=== PATIENT | male | born 1970 | race Caucasian/White ===

== ENCOUNTER 2016-09-29 11:28 | Inpatient (IN) | payer OTHER ==
[2016-09-29 13:33] VITALS: BMI 34.2
--- NOTE | 2016-09-29 18:39 | HP ---
CIWA Score - CIWA Score Nausea/Vomitin Muscle Tremors: 3 Anxiety: 3 Agitation: 3 Paroxysmal Sweats: 2 Orientation: 0-Oriented Tacttile Disturbances: 2-Mild Itch/Numbness/Burn Auditory Disturbances: 2-Mild Harshness/Frighten Visual Disturbances: 2-Mild Sensitivity Headache: 2-Mild CIWA-Ar Total Score: 22 Admission ROS BHS - HPI Chief Complaint: I NEED HELP TO STOP DRINKING ALCOHOL Allergies/Adverse Reactions: Allergies Allergy/AdvReac Type Severity Reaction Status Date / Time Egg Derived Allergy Severe Hives Verified 09/29/16 18:34 Fish Containing Products Allergy Severe Hives Verified 09/29/16 18:34 milk Allergy Severe Hives Verified 09/29/16 18:34 No Known Drug Allergies Allergy Verified 09/29/16 18:34 eggs Allergy Severe Hives Uncoded 03/03/16 14:53 History of Present Illness: THIS 46 YEARS OLD MALE WITH ALCOHOL DEPENDENCE,WITHDRAWAL SYMPTOM,LAST DETOX, LAST DETOX 03/03/16 TO 03/06/16 [facility] MULTIPLE ADMISSIONS IN DETOX ANXIETY AND DEPRESSION NICOTINE DEPENDENCE LONGEST PERIOD SOBRIETY 6 MONTHS Exam Limitations: No Limitations, Intoxication - Ebola screening Have you traveled outside of the country in the last 21 days: No (N) Have you had contact with anyone from an Ebola affected area: No Have you been sick,other than usual withdrawal symptoms: No Do you have a fever: No - Review of Systems Constitutional: Loss of Appetite, Malaise, Night Sweats, Changes in sleep, Weakness EENT: reports: Nose Congestion Respiratory: reports: No Symptoms reported Cardiac: reports: Palpitations GI: reports: Diarrhea, Nausea, Vomiting, Abdominal cramping : reports: No Symptoms Reported Musculoskeletal: reports: Back Pain, Muscle Pain Integumentary: reports: Dryness Neuro: reports: Headache, Tremors Endocrine: reports: No Symptoms Reported Hematology: reports: No Symptoms Reported Psychiatric: reports: Anxious, Depressed Patient History - Patient Medical History Hx Anemia: No Hx Asthma: No Hx Chronic Obstructive Pulmonary Disease (COPD): No Hx Cancer: No Hx Cardiac Disorders: No Hx Congestive Heart Failure: No Hx Hypertension: Yes (ALCOHOL RELATED BP ELEVATION) Hx Hypercholesterolemia: No Hx Pacemaker: No HX Cerebrovascular Accident: No Hx Seizures: No Hx Dementia: No Hx Diabetes: No Hx Gastrointestinal Disorders: Yes (acid reflux,lap gastric bypass in 2006 at [facility]) Hx Liver Disease: No Hx Genitourinary Disorders: No Hx Sexually Transmitted Disorders: No Hx Renal Disease (ESRD): No (KIDNEY STONE 2004) Hx Thyroid Disease: No Hx Human Immunodeficiency Virus (HIV): No Hx Hepatitis C: No Hx Depression: Yes (anxiety and depression, TRAZADONE) Hx Suicide Attempt: No Hx Bipolar Disorder: No Hx Schizophrenia: No Other Medical History: NO SUICIDAL,NO HOMICIDAL - Patient Surgical History Past Surgical History: Yes Hx Neurologic Surgery: No Hx Cataract Extraction: No Hx Cardiac Surgery: No Hx Lung Surgery: No Hx Breast Surgery: No Hx Breast Biopsy: No Hx Abdominal Surgery: Yes (gastric bypass 2007) Hx Appendectomy: No Hx Cholecystectomy: No Hx Genitourinary Surgery: Yes (CYSTOSCOPY WITH US LITHOTRIPSY) Hx Section: No Hx Orthopedic Surgery: No Other Surgical History: gastric bypass in 05/2008 Anesthesia Reaction: No - PPD History Previous Implant?: Yes Documented Results: Negative w/o proof Date: 03/28/15 Results: 0 MM PPD to be Administered?: Yes - Smoking Cessation Smoking history: Current every day smoker Have you smoked in the past 12 months: Yes Aproximately how many cigarettes per day: 4 Cigars Per Day: 5 Hx Chewing Tobacco Use: No Initiated information on smoking cessation: Yes 'Breaking Loose' booklet given: 09/29/16 - Substance & Tx. History Hx Alcohol Use: Yes Hx Substance Use: No Substance Use Type: Alcohol Hx Substance Use Treatment: Yes ([facility] 03/03/16 TO 03/06/16) - Substances Abused Alcohol Route: Oral Frequency: Daily Amount used: 2 pints Vodka Age of first use: 17 Date of Last Use: 09/29/16 Family Disease History - Family Disease History Family Disease History: Diabetes: Father ( HEART DISEASE), Heart Disease : Father, Other: Father, Mother, Brother, Sister Admission Physical Exam S - Vital Signs Vital Signs: Vital Signs - 24 hr 09/29/16 13:31 Temperature 98.2 F Pulse Rate 138 H Respiratory 18 Rate Blood Pressure 138/88 - Physical General Appearance: Yes: Moderate Distress, Tremorous, Irritable, Sweating, Anxious HEENTM: Yes: Nasal Congestion Respiratory: Yes: Lungs Clear Neck: Yes: Within Normal Limits Breast: Yes: Within Normal Limits Cardiology: Yes: Within Normal Limits, Regular Rhythm, S1, S2, Tachycardia Abdominal: Yes: Within Normal Limits, Normal Bowel Sounds, Non Tender, Soft, Other (S.P LAP GASTRIC BYPASS) Genitourinary: Yes: Within Normal Limits Back: Yes: Within Normal Limits Musculoskeletal: Yes: Back pain, Muscle Pain Extremities: Yes: Tremors Neurological: Yes: business objects II-XII NML intact, Fully Oriented, Alert, Motor Strength 5/5 Integumentary: Yes: Dry Lymphatic: Yes: Within Normal Limits - Diagnostic (1) Alcohol dependence with uncomplicated withdrawal Current Visit: No Status: Acute (2) Anxiety and depression Current Visit: No Status: Acute (3) Nicotine dependence Current Visit: No Status: Acute Qualifiers: Nicotine product type: other Substance use status: uncomplicated Qualified Code(s): F17.290 - Nicotine dependence, other tobacco product, uncomplicated Comment: SMOKES 5 CIGARS/D (4) Status following surgery for weight loss Current Visit: No Status: Acute (5) Kidney stones Current Visit: Yes Status: Acute (6) Insomnia Current Visit: Yes Status: Acute (7) Alcohol dependence with acute alcoholic intoxication Current Visit: Yes Status: Acute Cleared for Admission [facility] - Detox or Rehab [facility] Level of Care: Medically Managed Detox Regimen/Protocol: Librium [facility] Breath Alcohol Content Breath Alcohol Content: 0.235 Urine Drug Screen - Results Drug Screen Negative: Yes
[2016-09-29] MEDS ORDERED: P-EPHED 60MG/TRIPROLIDI 2.5MG TABLET PO PRN (18:58)
[2016-09-29] MEDS ORDERED: hydrOXYzine PAMOATE 50 MG CAPSULE (FP) PO PRN (18:58)
[2016-09-29] MEDS ORDERED: ACETAMINOPHEN 325 MG TABLET (FP) PO PRN (18:58)
[2016-09-29] MEDS ORDERED: MAGNESIUM CITRATE 300 ML BOTTLE PO PRN (18:58)
[2016-09-29] MEDS ORDERED: chlordiazePOXIDE HCL 25 MG CAPSULE PO PRN (18:58)
[2016-09-29] MEDS ORDERED: MAGNESIUM HYDROX 2400MG/30ML ORAL SUSPENSION 30 ML CUP PO PRN (18:58)
[2016-09-29] MEDS ORDERED: MENTHOL/PHENOL 1 EACH UD MM PRN (18:58)
[2016-09-29] MEDS ORDERED: LOPERAMIDE HCL 2 MG CAPSULE PO PRN (18:58)
[2016-09-29] MEDS ORDERED: diphenhydrAMINE HCL 50 MG CAPSULE PO PRN (18:58)
[2016-09-29] MEDS ORDERED: IBUPROFEN 400 MG TABLET (FP) PO PRN (18:58)
[2016-09-29] MEDS ORDERED: chlordiazePOXIDE HCL 25 MG CAPSULE PO ONE (18:58)
[2016-09-29] MEDS ORDERED: guaiFENesin/D-METHORPHAN HB 10 ML UNIT-DOSE CUPS PO PRN (18:58)
[2016-09-29] MEDS ORDERED: MAG HYDROX/AL HYDROX/SIMETH 30 ML UNIT-DOSE CUP PO PRN (18:58)
[2016-09-29] MEDS: THIAMINE HCL 100 MG TABLET (FP) PO SCH (22:32)
[2016-09-29] MEDS: chlordiazePOXIDE HCL 25 MG CAPSULE PO SCH (22:32)
[2016-09-30] MEDS: chlordiazePOXIDE HCL 25 MG CAPSULE PO SCH ×4 (05:41→22:29)
[2016-09-30 10:22] LABS: MCH 27.8 pg (25.7-33.7); MCHC 33.6 g/dl (32.0-35.9); MEAN CELL VOLUME 82.7 fl (80-96); MEAN PLT VOLUME 8.6 fl (7.5-11.1); PLATELET COUNT 131 K/MM3 (134-434); RDW 13.7 % (11.9-15.9); WHITE BLOOD COUNT 6.3 K/mm3 (4.0-10.0)
[2016-09-30] MEDS: PRENATAL VITAMINS W/ FOLIC ACID TABLET (FP) PO SCH (10:41)
[2016-09-30 10:46] LABS: ALBUMIN 3.9 g/dl (3.4-5.0); ALK PHOS 123 U/L (45-117); ANION GAP 9 (8-16); CALCIUM 8.4 mg/dL (8.5-10.1); CO2 32 mmol/L (21-32); CREATININE 0.9 mg/dL (0.7-1.3); GLUCOSE,RANDOM 78 mg/dL (74-106); SGOT/AST 30 U/L (15-37); SGPT/ALT 38 U/L (12-78); TOT PROT 6.4 g/dl (6.4-8.2)
--- NOTE | 2016-09-30 11:24 | PN ---
[facility] CIWA - CIWA Score Nausea/Vomitin-No Nausea/No Vomiting Muscle Tremors: 4-Moderate,w/Arms Extend Anxiety: 4-Mod. Anxious/Guarded Agitation: 4-Moderately Restless Paroxysmal Sweats: 1-Minimal Palms Moist Orientation: 0-Oriented Tacttile Disturbances: 3-Moderate Itch/Numb/Burn Auditory Disturbances: 0-None Visual Disturbances: 0-None Headache: 0-None Present CIWA-Ar Total Score: 16 BHS Progress Note (SOAP) Subjective: ANXIETY,TREMORS,SWEATS. Objective: 09/30/16 11:23 Vital Signs Temperature 97.8 F 09/30/16 11:12 Pulse Rate 110 H 09/30/16 11:12 Respiratory Rate 18 09/30/16 11:12 Blood Pressure 148/95 09/30/16 11:12 O2 Sat by Pulse Oximetry (%) Laboratory Last Values WBC 6.3 K/mm3 (4.0-10.0) D 09/30/16 08:00 RBC 5.40 M/mm3 (4.00-5.60) 09/30/16 08:00 Hgb 15.0 GM/dL (11.7-16.9) D 09/30/16 08:00 Hct 44.6 % (35.4-49) D 09/30/16 08:00 MCV 82.7 fl (80-96) 09/30/16 08:00 MCHC 33.6 g/dl (32.0-35.9) 09/30/16 08:00 RDW 13.7 % (11.9-15.9) 09/30/16 08:00 Plt Count 131 K/MM3 (134-434) L D 09/30/16 08:00 MPV 8.6 fl (7.5-11.1) 09/30/16 08:00 Sodium 141 mmol/L (136-145) 09/30/16 08:00 Potassium 3.9 mmol/L (3.5-5.1) 09/30/16 08:00 Chloride 100 mmol/L (98-107) 09/30/16 08:00 Carbon Dioxide 32 mmol/L (21-32) D 09/30/16 08:00 Anion Gap 9 (8-16) 09/30/16 08:00 BUN 15 mg/dL (7-18) D 09/30/16 08:00 Creatinine 0.9 mg/dL (0.7-1.3) 09/30/16 08:00 Creat Clearance w eGFR > 60 (>60) 09/30/16 08:00 Random Glucose 78 mg/dL (74-106) 09/30/16 08:00 Calcium 8.4 mg/dL (8.5-10.1) L 09/30/16 08:00 Total Bilirubin 2.0 mg/dL (0.2-1.0) H D 09/30/16 08:00 AST 30 U/L (15-37) D 09/30/16 08:00 ALT 38 U/L (12-78) 09/30/16 08:00 Alkaline Phosphatase 123 U/L (45-117) H D 09/30/16 08:00 Total Protein 6.4 g/dl (6.4-8.2) 09/30/16 08:00 Albumin 3.9 g/dl (3.4-5.0) 09/30/16 08:00 Assessment: 09/30/16 11:23 WITHDRAWAL SX Plan: CONTINUE DETOX PROTOCOL
[2016-09-30 11:46] LABS: HIV 1 & 2 AB NEGATIVE; HIV 1 AGp24 NEGATIVE
--- NOTE | 2016-09-30 13:38 | CONSULT ---
[facility] Psychiatric Consult - Data Date of interview: 09/30/16 Admission source: [facility] Identifying data: This is another admission to [facility] for Elías Benjamin who is a 46 y/o male seeking detoxification treatment on for alcohol dependence.Patient is ,a father of one,unemployed,domiciled and supported on [facility] benefits. Substance Abuse History: - Smoking Cessation. Smoking history: Current every day smoker. Have you smoked in the past 12 months: Yes. Aproximately how many cigarettes per day: 4. Cigars Per Day: 5. Hx Chewing Tobacco Use: No. Initiated information on smoking cessation: Yes. 'Breaking Loose' booklet given : 09/29/16. - Substance & Tx. History. Hx Alcohol Use: Yes. Hx Substance Use : No. Substance Use Type: Alcohol. Hx Substance Use Treatment: Yes ([facility] 03/03 TO 03/06/16). - Substances Abused. Alcohol. Route: Oral. Frequency: Daily. Amount used: 2 pints Vodka. Age of first use: 17. Date of Last Use: . Confirmed by patient in this interview. Medical History: Significant for hypertension (alcohol-related),GERD and obesity.Noted report of gastric bypass in 2007 and a history of cystoscopy/ lithotripsy. Psychiatric History: Patient admits to " a few " psychiatric hospitalizations in his lifetime.Known to [facility] and [facility].Diagnosed with MDD and Anxiety Disorder NOS.Medications :prozac 20 mg/ day + trazodone 300 mg/hs (confirmed through review of records).OPD care is rendered at the [facility] health clinic in [facility].Mr Benjamin states that he last took his medications prior to this [facility] visit.Patient denies history of suicide attempts. Physical/Sexual Abuse/Trauma History: No history. Additional Comment: Drug Screen is negative. Mental Status Exam - Mental Status Exam Alert and Oriented to: Time, Place, Person Cognitive Function: Good Patient Appearance: Well Groomed Mood: Withdrawn, Hopeful Affect: Normal Range Patient Behavior: Fatigued, Appropriate, Cooperative Speech Pattern: Clear Voice Loudness: Normal Thought Process: Goal Oriented Thought Disorder: Not Present Hallucinations: Denies Suicidal Ideation: Denies Homicidal Ideation: Denies Insight/Judgement: Fair Sleep: Poorly, Difficulty falling asleep Appetite: Good Muscle strength/Tone: Normal Gait/Station: Normal Psychiatric Findings - Problem List (Cameron 1, 2,3) (1) Alcohol dependence with uncomplicated withdrawal Current Visit: Yes Status: Acute (2) Nicotine dependence Current Visit: Yes Status: Acute Qualifiers: Nicotine product type: other Substance use status: uncomplicated Qualified Code(s): F17.290 - Nicotine dependence, other tobacco product, uncomplicated Comment: SMOKES 5 CIGARS/D (3) Alcohol-induced mood disorder Current Visit: Yes Status: Acute (4) MDD (major depressive disorder) Current Visit: Yes Status: Chronic (5) Insomnia Current Visit: Yes Status: Chronic (6) Kidney stones Current Visit: Yes Status: Chronic - Initial Treatment Plan Initial Treatment Plan: Psychoeducation.Detoxification.Medications : trazodone 300 mg po hs + prozac 20 mg po daily.Side effects/benefits discussed with the patient.Made aware of risk of priapism (trazodone).Patient responds that he is very well aware of the risks involved in taking these two drugs.History of good tolerability.Patient agrees to continue treatment on these drugs.Observation.
[2016-09-30] MEDS: FLUoxetine HCL 20 MG CAPSULE (FP) PO SCH (14:20)
--- NOTE | 2016-09-30 21:35 | EKG ---
Test Reason : Blood Pressure : / mmHG Vent. Rate : 113 BPM Atrial Rate : 113 BPM P-R Int : 148 ms QRS Dur : 084 ms QT Int : 324 ms P-R-T Axes : 056 013 039 degrees QTc Int : 444 ms SINUS TACHYCARDIA OTHERWISE NORMAL ECG NO PREVIOUS ECGS AVAILABLE Confirmed by TED CORTÉS MD ([id number]) on 09/30/2016 9:35:15 PM Referred By: Confirmed By:TED CORTÉS MD
[2016-09-30] MEDS: traZODone HCL 100 MG TABLET (FP) PO SCH (22:29)
[2016-09-30] MEDS: THIAMINE HCL 100 MG TABLET (FP) PO SCH (22:30)
[2016-10-01] MEDS: chlordiazePOXIDE HCL 25 MG CAPSULE PO SCH ×3 (05:44→17:21)
[2016-10-01] MEDS: PRENATAL VITAMINS W/ FOLIC ACID TABLET (FP) PO SCH (10:43)
[2016-10-01] MEDS: FLUoxetine HCL 20 MG CAPSULE (FP) PO SCH (10:43)
--- NOTE | 2016-10-01 11:55 | PN ---
[facility] CIWA - CIWA Score Nausea/Vomitin-No Nausea/No Vomiting Muscle Tremors: 4-Moderate,w/Arms Extend Anxiety: 4-Mod. Anxious/Guarded Agitation: 4-Moderately Restless Paroxysmal Sweats: 1-Minimal Palms Moist Orientation: 0-Oriented Tacttile Disturbances: 3-Moderate Itch/Numb/Burn Auditory Disturbances: 0-None Visual Disturbances: 0-None Headache: 0-None Present CIWA-Ar Total Score: 16 BHS Progress Note (SOAP) Subjective: ANXIETY,SLIGHT TREMORS,FATIGUE. Objective: 10/01/16 11:56 Vital Signs Temperature 95.3 F L 10/01/16 10:52 Pulse Rate 100 H 10/01/16 10:52 Respiratory Rate 18 10/01/16 10:52 Blood Pressure 126/82 10/01/16 10:52 O2 Sat by Pulse Oximetry (%) Laboratory Last Values WBC 6.3 K/mm3 (4.0-10.0) D 09/30/16 08:00 RBC 5.40 M/mm3 (4.00-5.60) 09/30/16 08:00 Hgb 15.0 GM/dL (11.7-16.9) D 09/30/16 08:00 Hct 44.6 % (35.4-49) D 09/30/16 08:00 MCV 82.7 fl (80-96) 09/30/16 08:00 MCHC 33.6 g/dl (32.0-35.9) 09/30/16 08:00 RDW 13.7 % (11.9-15.9) 09/30/16 08:00 Plt Count 131 K/MM3 (134-434) L D 09/30/16 08:00 MPV 8.6 fl (7.5-11.1) 09/30/16 08:00 Sodium 141 mmol/L (136-145) 09/30/16 08:00 Potassium 3.9 mmol/L (3.5-5.1) 09/30/16 08:00 Chloride 100 mmol/L (98-107) 09/30/16 08:00 Carbon Dioxide 32 mmol/L (21-32) D 09/30/16 08:00 Anion Gap 9 (8-16) 09/30/16 08:00 BUN 15 mg/dL (7-18) D 09/30/16 08:00 Creatinine 0.9 mg/dL (0.7-1.3) 09/30/16 08:00 Creat Clearance w eGFR > 60 (>60) 09/30/16 08:00 Random Glucose 78 mg/dL (74-106) 09/30/16 08:00 Calcium 8.4 mg/dL (8.5-10.1) L 09/30/16 08:00 Total Bilirubin 2.0 mg/dL (0.2-1.0) H D 09/30/16 08:00 AST 30 U/L (15-37) D 09/30/16 08:00 ALT 38 U/L (12-78) 09/30/16 08:00 Alkaline Phosphatase 123 U/L (45-117) H D 09/30/16 08:00 Total Protein 6.4 g/dl (6.4-8.2) 09/30/16 08:00 Albumin 3.9 g/dl (3.4-5.0) 09/30/16 08:00 RPR Titer Nonreactive (NONREACTIVE) 09/30/16 08:00 HIV 1&2 Antibody Screen Negative 09/30/16 08:00 HIV P24 Antigen Negative 09/30/16 08:00 Assessment: 10/01/16 11:56 WITHDRAWAL SX Plan: CONTINUE DETOX INCREASE PO FLUIDS.
[2016-10-01 14:42] LABS: URINE APPEARANCE CLEAR; URINE BILIRUBIN NEGATIVE (NEGATIVE); URINE BLOOD NEGATIVE (NEGATIVE); URINE COLOR AMBER; URINE GLUCOSE (UA) NEGATIVE (NEGATIVE); URINE KETONE NEGATIVE (NEGATIVE); URINE NITRITE NEGATIVE (NEGATIVE); URINE UROBILINOGEN 4.0 E.U/dl E.U./dl (0.2-1.0)
[2016-10-01 14:43] LABS: URINE LEUK ESTERASE 3+ (NEGATIVE); URINE PROTEIN 1+ (NEGATIVE)
[2016-10-01 14:49] LABS: URINE MUCUS RARE; URINE RBC 10 /hpf (0-3); URINE WBC 83 /hpf (3-5)
[2016-10-01] MEDS: THIAMINE HCL 100 MG TABLET (FP) PO SCH (22:48)
[2016-10-01] MEDS: traZODone HCL 100 MG TABLET (FP) PO SCH (22:48)
[2016-10-01] MEDS: chlordiazePOXIDE 5 MG CAPSULE PO SCH (22:48)
[2016-10-02] MEDS: chlordiazePOXIDE 5 MG CAPSULE PO SCH ×3 (05:33→18:41)
[2016-10-02] MEDS: PRENATAL VITAMINS W/ FOLIC ACID TABLET (FP) PO SCH (11:12)
[2016-10-02] MEDS: FLUoxetine HCL 20 MG CAPSULE (FP) PO SCH (11:12)
--- NOTE | 2016-10-02 11:46 | PN ---
BHS Progress Note (SOAP) Subjective: DECREASED ANXIETY, TREMORS. SWEATS,INTERMITTENT SLEEP. Objective: 10/02/16 11:45 Vital Signs Temperature 97.6 F 10/02/16 10:09 Pulse Rate 99 H 10/02/16 10:09 Respiratory Rate 20 10/02/16 10:09 Blood Pressure 122/75 10/02/16 10:09 O2 Sat by Pulse Oximetry (%) Assessment: 10/02/16 11:45 WITHDRAWAL SX Plan: CONTINUE DETOX
[2016-10-02] MEDS: traZODone HCL 100 MG TABLET (FP) PO SCH (22:37)
[2016-10-02] MEDS: THIAMINE HCL 100 MG TABLET (FP) PO SCH (22:37)
[2016-10-02] MEDS: chlordiazePOXIDE HCL 10 MG CAPSULE PO SCH (22:38)
[2016-10-03] MEDS: chlordiazePOXIDE HCL 10 MG CAPSULE PO SCH (05:55)
[2016-10-03 06:45] VITALS: BP 112/73; PULSE 81; TEMP 96.4
--- NOTE | 2016-10-03 08:33 | DS ---
[facility] Detox Discharge Summary Admission Date: 09/29/16 Discharge Date: 10/03/16 - History Present History: Alcohol Dependence Additional Comments: DETOX COMPLETED. ALERT O X 3. NAD FOLLOW UP WITH PMD DR ANA TIRADO AT [facility]. Pertinent Past History: HTN SEIZURES - Physical Exam Results Vital Signs: Vital Signs Temperature 96.4 F L 10/03/16 06:45 Pulse Rate 81 10/03/16 06:45 Respiratory Rate 18 10/03/16 06:45 Blood Pressure 112/73 10/03/16 06:45 O2 Sat by Pulse Oximetry (%) Pertinent Admission Physical Exam Findings: WITHDRAWAL SX - Treatment Hospital Course: Detox Protocol Followed, Detoxed Safely, Responded well, Discharged Condition Good - Medication Discharge Medications: Ambulatory Orders Fluoxetine HCl [Prozac -] 20 mg PO DAILY 03/03/16 Trazodone HCl 300 mg PO HS #20 tablet 03/05/16 Fluoxetine HCl [Prozac] 20 mg PO DAILY #30 capsule 10/01/16 Trazodone HCl 300 mg PO HS #30 tablet 10/01/16 - Diagnosis (1) Alcohol dependence with uncomplicated withdrawal Status: Acute (2) Nicotine dependence Status: Acute Qualifiers: Nicotine product type: other Substance use status: uncomplicated Qualified Code(s): F17.290 - Nicotine dependence, other tobacco product, uncomplicated (3) Insomnia Status: Chronic (4) MDD (major depressive disorder) Status: Chronic - AMA Did Patient Leave Against Medical Advice: No
== END 2016-10-03 09:15 | disposition home or self-care (01) | DRG 897 ==
LOC: YASAS 11:28 → Y3N 18:30
PROVIDERS: ADMIT Internal Medicine; ATTEND Internal Medicine
PROC: HZ2ZZZZ Detoxification Services for Substance Abuse Treatment (ICD-10-PCS; principal; 2016-10-03)
DX: F10.230 Alcohol dependence with withdrawal, uncomplicated (principal); F33.9 Major depressive disorder, recurrent, unspecified; F17.290 Nicotine dependence, other tobacco product, uncomplicated; F19.24 Other psychoactive substance dependence with psychoactive substance-induced mood disorder; F41.9 Anxiety disorder, unspecified; G47.00 Insomnia, unspecified; Z98.84 Bariatric surgery status
CPT/HCPCS: 36415; 80053; 81003; 81015; 85027; 86593; 87389; 93005; 93010